=== PATIENT | female | born 1955 | race Caucasian/White ===

== ENCOUNTER → 2017-01-29 | Outpatient (CLI) | payer MEDICAID ==
[~2017-01-29] MED LIST: CLON-365 PO; ESOM20CA PO; LISI40TA PO; METF500T27 PO; METROGEL TP
== END | disposition home or self-care (01) ==
LOC: CVU 09:59
PROVIDERS: ATTEND Internal Medicine Cardiovascular Disease
DX: I10 Essential (primary) hypertension (principal); R06.02 Shortness of breath; R07.9 Chest pain, unspecified
CPT/HCPCS: 93306

== ENCOUNTER → 2017-02-17 | Outpatient (CLI) | payer MEDICAID | END | disposition home or self-care (01) | LOC: CARD 13:57 | PROVIDERS: ATTEND Internal Medicine Cardiovascular Disease | DX: R07.9 Chest pain, unspecified (principal); R06.02 Shortness of breath | CPT/HCPCS: 94060; 94726; 94729 ==

== ENCOUNTER 2018-09-10 11:46 | Emergency (ER) | payer OTHER ==
[~2018-09-10] VITALS: Ht 167.6 cm; Wt 125.3 kg
[~2018-09-10 11:46] MED LIST changes: -CLON-365 PO; +CLON1TAB11 PO
[2018-09-10 11:50] VITALS: BP 146/70
== END 2018-09-10 13:26 | disposition home or self-care (01) ==
LOC: ED 13:20
DX: M79.671 Pain in right foot (principal); M77.31 Calcaneal spur, right foot; E11.9 Type 2 diabetes mellitus without complications
CPT/HCPCS: 99283

== ENCOUNTER 2020-06-16 16:45 | Observation (INO) | payer OTHER ==
[~2020-06-16] VITALS: Ht 167.6 cm; Wt 126.4 kg
[~2020-06-16 16:45] MED LIST changes: -LISI40TA PO; +LISI40TA9 PO
[2020-06-16] MEDS ORDERED: METOCLOPRAMIDE 5 MG/ML, 2ML ONE (17:24)
[2020-06-16] MEDS ORDERED: ASPIRIN 81 MG TABLET CHEW ONE (17:24)
[2020-06-16] MEDS ORDERED: METOCLOPRAMIDE 5 MG/ML, 2ML IVPush ONE (17:30)
[2020-06-16] MEDS ORDERED: NITROGLYCERIN SINGLE TAB 0.4 MG SL PRN (17:30)
[2020-06-16] MEDS ORDERED: ASPIRIN 81 MG TABLET CHEW PO ONE (17:30)
--- NOTE | 2020-06-16 17:30 | NUR ---
MEDS ADMIN PER MAY. PT DENIES CP AT THIS TIME. PT CONNECTED TO MONITORING. CALL LIGHT IN REACH. PIV PLACED BY ACCOUNTING SYSTEMS MANAGER.
[2020-06-16 18:12] LABS: BASOPHILS % (AUTO) 0 % (0-1); EOSINOPHILS % (AUTO) 1 % (1-7); LYMPHOCYTES % (AUTO) 13 % (22-44); MEAN CORPUSCULAR HEMOGLOBIN 31.8 pg (27.0-34.8); MEAN CORPUSCULAR HGB CONC 33.4 g/dL (32.4-35.8); MEAN PLATELET VOLUME 9.3 fL (7.4-10.4); MONOCYTES % (AUTO) 6 % (2-9); NEUTROPHILS % (AUTO) 80 % (42-75); PLATELET COUNT 292 x10^3/uL (130-400); RED BLOOD COUNT 4.44 x10^6/uL (3.82-5.3); RED CELL DISTRIBUTION WIDTH 13.4 % (9.6-15.2)
[2020-06-16 18:15] LABS: ALANINE AMINOTRANSFERASE 32 U/L (12-78); ALBUMIN 3.7 g/dL (3.4-5.0); ANION GAP 7 mmol/L (5-15); CALCIUM 8.8 mg/dL (8.5-10.1); CHLORIDE 104 mmol/L (98-107); CREATININE 1.08 mg/dL (0.55-1.02)
[2020-06-16 18:19] LABS: ALKALINE PHOSPHATASE 83 U/L (45-117); BILIRUBIN,TOTAL 0.3 mg/dL (0.2-1.0); TOTAL PROTEIN 8.1 g/dL (6.4-8.2); TROPONIN I < 0.015 ng/mL (0.000-0.045)
[2020-06-16] MEDS ORDERED: KETOROLAC 30 MG/1 ML ONE (18:51)
[2020-06-16] MEDS ORDERED: KETOROLAC 30 MG/1 ML IVPush ONE (19:00)
[2020-06-16 19:14] LABS: MICROSCOPIC NOT IND
--- NOTE | 2020-06-16 19:38 | NUR ---
PT BACK FROM CT. PT RESTING COMFORTABLY ON GURNEY. BEBO.
[2020-06-16] MEDS ORDERED: OMNIPAQUE 350 MG/ML, 100ML BOTTLE ONE (20:00)
--- NOTE | 2020-06-16 20:04 | NUR ---
MD AT BEDSIDE TO UPDATE PT ON POC.
--- NOTE | 2020-06-16 21:15 | NUR ---
HOSPITALIST AT BEDSIDE. REPORT GIVEN TO NYASIA ROMEO. PT RTG TO ROOM [phone]
--- NOTE | 2020-06-16 21:16 | NUR ---
PER DR ARAMBULA PT TO BE NPO AFTER MIDNIGHT.
[2020-06-16 21:48] VITALS: BP 133/80
[2020-06-16] MEDS ORDERED: ONDANSETRON 2MG/ML, 2ML IVPush PRN (22:00)
[2020-06-16] MEDS ORDERED: POLYETHYLENE GLYCOL 17 GM PACKET PO PRN (22:00)
[2020-06-16] MEDS ORDERED: NITROGLYCERIN 0.4 MG BOTTLE (25 TABS) SL PRN (22:00)
[2020-06-16] MEDS ORDERED: hydrALAzine 20 MG/ML, 1ML IVPush PRN (22:00)
[2020-06-16] MEDS ORDERED: OXYcodone IR 5MG TABLET PO PRN (22:00)
[2020-06-16] MEDS ORDERED: PROMETHAZINE 25 MG/ML, 1ML IM PRN (22:00)
[2020-06-16] MEDS ORDERED: SODIUM CHLORIDE 0.9% 1,000 ML IV SCH (22:00)
[2020-06-16] MEDS ORDERED: BISACODYL 10 MG SUPP PR PRN (22:00)
[2020-06-16] MEDS ORDERED: DOCUSATE 100 MG CAPSULE PO PRN (22:00)
[2020-06-16] MEDS ORDERED: ONDANSETRON ODT 4 MG PO PRN (22:00)
[2020-06-16] MEDS ORDERED: PARO10TA56 PO (22:05)
[2020-06-16] MEDS: HEPARIN 5,000 UNITS/ML, 1ML SQ SCH (23:34)
[2020-06-16] MEDS: PANTOPRAZOLE 40MG TABLET PO SCH (23:34)
[2020-06-17 01:17] VITALS: BP 110/72
[2020-06-17 02:15] LABS: TROPONIN I < 0.015 ng/mL (0.000-0.045)
[2020-06-17 05:51] LABS: BASOPHILS % (AUTO) 1 % (0-1); EOSINOPHILS % (AUTO) 1 % (1-7); LYMPHOCYTES % (AUTO) 22 % (22-44); MEAN CORPUSCULAR HGB CONC 33.1 g/dL (32.4-35.8); MONOCYTES % (AUTO) 9 % (2-9); NEUTROPHILS % (AUTO) 67 % (42-75); PLATELET COUNT 247 x10^3/uL (130-400); RED BLOOD COUNT 3.88 x10^6/uL (3.82-5.3); RED CELL DISTRIBUTION WIDTH 13.3 % (9.6-15.2)
[2020-06-17 05:56] LABS: HCT (SEDRATE) 37.1 % (34.6-47.8)
[2020-06-17 06:01] LABS: ALBUMIN 2.9 g/dL (3.4-5.0); CHLORIDE 107 mmol/L (98-107)
[2020-06-17 06:15] LABS: ALANINE AMINOTRANSFERASE 24 U/L (12-78); ALKALINE PHOSPHATASE 67 U/L (45-117); ANION GAP 4 mmol/L (5-15); BILIRUBIN,TOTAL 0.3 mg/dL (0.2-1.0); CALCIUM 8.4 mg/dL (8.5-10.1); CHOL/HDL RATIO 4.4; CHOLESTEROL, TOTAL 168 mg/dL (140-239); CREATININE 1.08 mg/dL (0.55-1.02); HDL CHOL % 23 % (28-40); HDL CHOLESTEROL (DIRECT) 38 mg/dL (40-60); LDL CHOLESTEROL,CALCULATED 91 mg/dL (54-169); LDL/HDL RATIO 2.4 (0.5-3.0); TOTAL PROTEIN 6.5 g/dL (6.4-8.2); TRIGLYCERIDES 196 mg/dL (50-200); TROPONIN I < 0.015 ng/mL (0.000-0.045); VLDL CHOLESTEROL 39 mg/dL (0-25)
[2020-06-17] MEDS: ASPIRIN 325 MG TABLET EC PO SCH (06:18)
[2020-06-17 07:06] VITALS: BP 125/66
[2020-06-17] MEDS: INSULIN LISPRO 100 UNITS/ML, PEN SQ-INSULIN SCH ×4 (07:55→20:15)
[2020-06-17] MEDS: PANTOPRAZOLE 40MG TABLET PO SCH ×2 (07:57→20:14)
[2020-06-17] MEDS: PAROXETINE 10 MG TABLET PO SCH (07:57)
[2020-06-17] MEDS: LISINOPRIL 40 MG TABLET PO SCH (07:57)
[2020-06-17] MEDS: HEPARIN 5,000 UNITS/ML, 1ML SQ SCH ×3 (07:57→22:25)
[2020-06-17] MEDS ORDERED: REGADENOSON 0.4 MG/5 ML SYRINGE ONE (08:08)
[2020-06-17 13:08] VITALS: BP 146/91
[2020-06-17 19:26] VITALS: BP 118/74
[2020-06-17] MEDS: ACETAMINOPHEN 325 MG TABLET PO PRN (21:03)
[2020-06-18] MEDS ORDERED: CALCIUM CARBONATE 500 MG TAB.CHEW PO PRN
[2020-06-18 01:11] VITALS: BP 141/70
[2020-06-18 04:58] LABS: BASOPHILS % (AUTO) 1 % (0-1); EOSINOPHILS % (AUTO) 2 % (1-7); LYMPHOCYTES % (AUTO) 27 % (22-44); MEAN CORPUSCULAR HEMOGLOBIN 31.7 pg (27.0-34.8); MEAN CORPUSCULAR HGB CONC 33.3 g/dL (32.4-35.8); MONOCYTES % (AUTO) 8 % (2-9); NEUTROPHILS % (AUTO) 62 % (42-75); PLATELET COUNT 239 x10^3/uL (130-400); RED BLOOD COUNT 3.91 x10^6/uL (3.82-5.3); RED CELL DISTRIBUTION WIDTH 13.6 % (9.6-15.2)
[2020-06-18 05:07] LABS: CHLORIDE 109 mmol/L (98-107)
[2020-06-18 05:13] LABS: ANION GAP 5 mmol/L (5-15); CALCIUM 8.3 mg/dL (8.5-10.1); CREATININE 1.03 mg/dL (0.55-1.02)
[2020-06-18] MEDS: ASPIRIN 325 MG TABLET EC PO SCH (06:03)
[2020-06-18] MEDS: HEPARIN 5,000 UNITS/ML, 1ML SQ SCH ×3 (06:03→22:47)
[2020-06-18] MEDS: INSULIN LISPRO 100 UNITS/ML, PEN SQ-INSULIN SCH ×4 (07:00→20:07)
[2020-06-18 08:02] VITALS: BP 120/75
[2020-06-18] MEDS ORDERED: REGADENOSON 0.4 MG/5 ML SYRINGE ONE (08:16)
[2020-06-18] MEDS ORDERED: DIPHENHYDRAMINE 25 MG CAPSULE ONE (10:40)
[2020-06-18] MEDS ORDERED: DIPHENHYDRAMINE 25 MG CAPSULE PO PRN (11:00)
[2020-06-18] MEDS: PAROXETINE 10 MG TABLET PO SCH (11:22)
[2020-06-18] MEDS: PANTOPRAZOLE 40MG TABLET PO SCH ×2 (11:22→20:17)
[2020-06-18] MEDS: LISINOPRIL 40 MG TABLET PO SCH (11:22)
[2020-06-18 12:54] VITALS: BP 127/78
[2020-06-18 20:12] VITALS: BP 135/84
[2020-06-18] MEDS: ACETAMINOPHEN 325 MG TABLET PO PRN (20:24)
[2020-06-19 00:20] VITALS: BP 106/81
[2020-06-19] MEDS ORDERED: ASPIRIN 81 MG TABLET EC PO SCH (06:00)
[2020-06-19] MEDS: HEPARIN 5,000 UNITS/ML, 1ML SQ SCH ×2 (06:16→14:41)
[2020-06-19] MEDS: INSULIN LISPRO 100 UNITS/ML, PEN SQ-INSULIN SCH ×3 (07:00→15:50)
[2020-06-19 08:03] VITALS: BP 116/70
[2020-06-19] MEDS: LISINOPRIL 40 MG TABLET PO SCH (09:46)
[2020-06-19] MEDS: PANTOPRAZOLE 40MG TABLET PO SCH (09:46)
[2020-06-19] MEDS: PAROXETINE 10 MG TABLET PO SCH (09:47)
[2020-06-19] MEDS: ACETAMINOPHEN 325 MG TABLET PO PRN (11:18)
[2020-06-19 13:21] VITALS: BP 121/70
[2020-06-20 16:52] LABS: ANA SCREEN NEGATIVE (Negative)
[2020-10-12] MEDS ORDERED: VALERIAN ROOT PO (14:19)
[2020-10-12] MEDS ORDERED: PANT40TA6 PO (14:19)
[2020-10-12] MEDS ORDERED: HYDR50TA99 PO (14:19)
[2020-10-12] MEDS ORDERED: MELA10TA PO (14:19)
== END 2020-06-19 17:07 | disposition home or self-care (01) ==
LOC: EDBD 16:45 → ED 20:42 → EDIP 21:04 → INTOOBSV 21:04 → 5SO 21:31
PROVIDERS: ADMIT Internal Medicine; ATTEND Hospitalist
DX: R07.89 Other chest pain (principal); D72.829 Elevated white blood cell count, unspecified; G47.33 Obstructive sleep apnea (adult) (pediatric); I10 Essential (primary) hypertension; E11.9 Type 2 diabetes mellitus without complications; K21.9 Gastro-esophageal reflux disease without esophagitis; K80.20 Calculus of gallbladder without cholecystitis without obstruction; R13.10 Dysphagia, unspecified; F32.9 Major depressive disorder, single episode, unspecified; E66.9 Obesity, unspecified; M41.9 Scoliosis, unspecified; R70.0 Elevated erythrocyte sedimentation rate; Q21.1 Atrial septal defect; Z79.84 Long term (current) use of oral hypoglycemic drugs; Z79.899 Other long term (current) drug therapy; Z90.710 Acquired absence of both cervix and uterus; Z87.19 Personal history of other diseases of the digestive system
CPT/HCPCS: 36415; 71045; 71275; 76705; 78452; 80048; 80053; 80061; 81003; 82962; 83036; 83735; 84100; 84145; 84439; 84443; 84484; 85025; 85379; 85651; 86038; 86140; 92610; 93005; 93017; 93306; 94660; 96361; 96372; 96374; 96375; 99285; A9502; G0378; J1644; J1885; J2765; J2785; J7030; Q0163; Q9967

== ENCOUNTER → 2020-10-12 | Outpatient (CLI) | payer OTHER ==
[~2020-10-12] MED LIST changes: +HYDR50TA99 PO; +MELA10TA PO; +PANT40TA6 PO; +PARO10TA56 PO; +VALERIAN ROOT PO
[2020-10-12 14:54] LABS: CHLORIDE 110 mmol/L (98-107)
[2020-10-12 15:03] LABS: ALANINE AMINOTRANSFERASE 32 U/L (12-78); ALBUMIN 3.3 g/dL (3.4-5.0); ALKALINE PHOSPHATASE 75 U/L (45-117); ANION GAP 4 mmol/L (5-15); BILIRUBIN,TOTAL 0.3 mg/dL (0.2-1.0); CALCIUM 9.2 mg/dL (8.5-10.1); CREATININE 1.05 mg/dL (0.55-1.02); TOTAL PROTEIN 7.1 g/dL (6.4-8.2)
== END | disposition home or self-care (01) ==
LOC: STAR 13:47
PROVIDERS: ATTEND Surgery
DX: Z01.812 Encounter for preprocedural laboratory examination (principal); K80.20 Calculus of gallbladder without cholecystitis without obstruction; R00.1 Bradycardia, unspecified
CPT/HCPCS: 36415; 80053; 93005

== ENCOUNTER 2020-10-19 06:51 | Day surgery (SDC) | payer OTHER ==
[~2020-10-19] VITALS: Ht 165.1 cm; Wt 116.2 kg
[2020-10-19] MEDS ORDERED: BUPIVACAINE/PF 0.25% ONE (07:06)
[2020-10-19] MEDS ORDERED: OXYcodone 5 MG/5 ML ORAL.SOL UDC PO PRN (07:30)
[2020-10-19] MEDS ORDERED: EPHEDRINE 50 MG/ML, 1ML IVPush PRN (07:30)
[2020-10-19] MEDS ORDERED: ONDANSETRON 2MG/ML, 2ML IVPush PRN (07:30)
[2020-10-19] MEDS ORDERED: ACETAMINOPHEN 325 MG TABLET PO PRN (07:30)
[2020-10-19] MEDS ORDERED: CHLORHEXIDINE 15 ML UDC PO ONE (07:30)
[2020-10-19] MEDS ORDERED: HYDROmorphone 1 MG/ML, 1ML INJ IVPush PRN (07:30)
[2020-10-19] MEDS ORDERED: PROMETHAZINE 25 MG/ML, 1ML IVPush PRN (07:30)
[2020-10-19] MEDS ORDERED: LABETALOL 5MG/ML, 20ML IV PRN (07:30)
[2020-10-19] MEDS ORDERED: INDOCYANINE GREEN 25 MG VIAL IVPush ONE (07:30)
[2020-10-19] MEDS ORDERED: hydrALAzine 20 MG/ML, 1ML IV PRN (07:30)
[2020-10-19] MEDS ORDERED: LACTATED RINGERS 1,000 ML IV SCH (07:30)
[2020-10-19] MEDS ORDERED: FENTANYL PF 100 MCG/2ML IV PRN (07:30)
[2020-10-19 07:43] VITALS: BP 147/81
[2020-10-19] MEDS ORDERED: INDOCYANINE GREEN 25 MG VIAL ONE (07:47)
[2020-10-19] MEDS ORDERED: FENTANYL PF 100 MCG/2ML ONE ×2 (08:23→09:38)
[2020-10-19] MEDS ORDERED: MIDAZOLAM 1 MG/ML, 2ML ONE (08:23)
[2020-10-19] MEDS ORDERED: ROCURONIUM 10MG/ML,5ML ONE (08:24)
[2020-10-19] MEDS ORDERED: PROPOFOL 10 MG/ML, 20ML ONE (08:24)
[2020-10-19] MEDS ORDERED: SUCCINYLCHOLINE 20 MG/ML, 10ML ONE (08:24)
[2020-10-19] MEDS ORDERED: ONDANSETRON 2MG/ML, 2ML ONE (08:24)
[2020-10-19] MEDS ORDERED: DEXAMETHASONE 4 MG/ML, 5ML ONE ×2 (08:25)
[2020-10-19] MEDS ORDERED: CEFOTETAN 2 GM ONE ×2 (08:25→08:42)
[2020-10-19] MEDS ORDERED: SUGAMMADEX 200 MG/2 ML IVPush ONE (08:25)
[2020-10-19] MEDS ORDERED: BUPIVACAINE/PF-EPI 0.5% 1:200K INFIL ONE (08:51)
[2020-10-19] MEDS ORDERED: GLYCOPYRROLATE 0.2MG/1ML, 5ML ONE (09:19)
[2020-10-19] MEDS ORDERED: ONDA4TAB7 PO (10:09)
[2020-10-19] MEDS ORDERED: OXYC-302 PO (10:09)
[2020-10-19] MEDS ORDERED: MEPERIDINE/PF 25MG/ML,1ML ONE (10:17)
[2020-10-19] MEDS ORDERED: MEPERIDINE/PF 25MG/0.5ML IVPush PRN (10:30)
== END 2020-10-19 13:45 | disposition home or self-care (01) ==
LOC: OUT 06:51
PROVIDERS: ATTEND Surgery
DX: K80.10 Calculus of gallbladder with chronic cholecystitis without obstruction (principal); K82.1 Hydrops of gallbladder; K76.0 Fatty (change of) liver, not elsewhere classified; E11.22 Type 2 diabetes mellitus with diabetic chronic kidney disease; I12.9 Hypertensive chronic kidney disease with stage 1 through stage 4 chronic kidney disease, or unspecified chronic kidney disease; N18.9 Chronic kidney disease, unspecified; K21.9 Gastro-esophageal reflux disease without esophagitis; G47.33 Obstructive sleep apnea (adult) (pediatric); Z79.899 Other long term (current) drug therapy; Z88.5 Allergy status to narcotic agent; Z88.8 Allergy status to other drugs, medicaments and biological substances
CPT/HCPCS: 47562; 82962; 88304; C1729; J0330; J1100; J2175; J2250; J2405; J2704; J3010; J7120